=== PATIENT | female | born 1940 | race Caucasian/White ===

== ENCOUNTER 2020-04-19 01:10 | Emergency (ER) | payer OTHER, MEDICAID ==
[~2020-04-19] VITALS: Ht 152.4 cm; Wt 66.2 kg
--- NOTE | 2020-04-19 01:10 | NUR ---
PT BIBA BLS. TAKEN TO BED 9
--- NOTE | 2020-04-19 01:18 | NUR ---
Dr. Lewis examining patient.
[2020-04-19 01:25] VITALS: BP 148/52
[2020-04-19] MEDS ORDERED: MORPHINE SULFATE 2 MG/ML SYR IVP ONE ×3 (01:25→06:25)
[2020-04-19] MEDS ORDERED: NACL 0.9% 500 ML IV ONE (01:25)
[2020-04-19] MEDS ORDERED: ONDANSETRON 4 MG/2 ML VIAL IVP ONE (01:25)
--- NOTE | 2020-04-19 01:36 | NUR ---
XRAY AT BEDSIDE.
--- NOTE | 2020-04-19 01:38 | NUR ---
80 Y FEMALE BIBA DUE TO A LEFT HIP PAIN. PT STATES THAT SHE WAS GONNA GET FOOD WHEN SHE LOST BALANCE, AND FELL ON HER LEFT SIDE. SHE STATED THAT SHE "SLAMMED" ON THE FLOOR ON HER LEFT SIDE. SHE STATED THAT SHE HEARD A "POP' OR CRACK WHEN SHE FELL. HER PAIN WAS AT 10/10 THAT RADIATES TO LOWER EXTREMITIES. MEDICAL HX: HYPERTENSION, ASTHMA AND ARTHRITIS ALLERGIES: POLLEN, TREES
--- NOTE | 2020-04-19 01:38 | NUR ---
LAB AT BEDSIDE
[2020-04-19 01:50] LABS: ANION GAP 9.5 (8-16); CARBON DIOXIDE 28.2 mmol/L (21-32); CHLORIDE 106 mmol/L (98-107); CREATININE 0.9 mg/dL (0.6-1.3); GLUCOSE 116 mg/dL (74-106); POTASSIUM 3.7 mmol/L (3.5-5.1); SODIUM SERUM 140 mmol/L (136-145); UREA NITROGEN, BLOOD 22 mg/dL (7-18)
[2020-04-19 02:03] LABS: BASOPHILS # (AUTO) 0.3 K/uL (0.00-0.22); BASOPHILS % (AUTO) 4.6 % (0.0-2.0); EOSINOPHILS # (AUTO) 1.4 K/uL (0-0.4); HEMATOCRIT 37.5 % (36-48); HEMOGLOBIN 12.5 g/dL (12.0-16.0); LYMPHOCYTES # (AUTO) 1.5 K/uL (2.5-16.5); LYMPHOCYTES % (AUTO) 20.2 % (20.5-51.1); MEAN CORPUSCULAR HEMOGLOBIN 30 pg (27-31); MEAN CORPUSCULAR HGB CONC 33 g/dL (33-37); MEAN CORPUSCULAR VOLUME 90.2 fL (80-94); MONOCYTES # (AUTO) 0.6 K/uL (0.8-1.0); MONOCYTES % (AUTO) 8.4 % (1.7-9.3); NEUTROPHILS # (AUTO) 3.5 K/uL (1.8-7.7); NEUTROPHILS % (AUTO) 47.8 % (42.2-75.2); PLATELET COUNT (AUTO) 209 K/uL (140-450); RED BLOOD CELL COUNT(AUTO) 4.16 MIL/uL (4.20-5.40); RED CELL DISTRIBUTION WIDTH 14.1 % (11.6-13.7); WHITE BLOOD COUNT (AUTO) 7.4 K/uL (4.8-10.8)
--- NOTE | 2020-04-19 02:22 | NUR ---
SPOKE WITH JONN FROM [facility] AND RECIVED REPORT FOR BRIELLE THAT PATIENT XRAY READS: Acute fracture proximal left femur extending from intertrochanteric region into proximal diaphysis with mild comminution and mild displacement. BRIELLE MADE AWARE.
--- NOTE | 2020-04-19 02:35 | NUR ---
PT WAS TAKEN TO CT SCAN
[2020-04-19 02:40] LABS: PROTHROMBIN TIME 9.7 secs (10.8-13.4)
--- NOTE | 2020-04-19 02:40 | NUR ---
PT STATED HOME MEDICATIONS: LOSARTAN, PROAIR (ASTHMA MED)
--- NOTE | 2020-04-19 03:16 | NUR ---
PT RETURN FROM CT
--- NOTE | 2020-04-19 03:51 | NUR ---
# 16 FR Vegas catheter with 10 ml utilizing sterile technique. Immediate return of 100 ml straw urine noted. Bedside drainage bag placed below level of bladder. Urine sample collected and sent to lab. Pt tolerated procedure well.
--- NOTE | 2020-04-19 03:53 | NUR ---
[place] SWAB COLLECTED AND SENT TO LAB
--- NOTE | 2020-04-19 05:00 | NUR ---
Patient appears to be resting comfortably in bed. Vital Signs within normal limits. Respirations even and unlabored.
--- NOTE | 2020-04-19 07:13 | NUR ---
REPORTED TO SONNY FOR CONTINUITY OF CARE
--- NOTE | 2020-04-19 07:15 | NUR ---
Report received from YANETH Aguilar restaurant shift leader for continuity of care.
--- NOTE | 2020-04-19 07:48 | NUR ---
[facility]RA[facility]. NKDA, pollen allergy. PMH - HTN, appendectomy and cholesystectomy. Awaiting transfer to [facility], bed availability. COVID-19 swab NEGATIVE. A, A, O x 4, cooperative. In no acute distress. Positioned for comfort on gurney. HOB elevated, monitoring specialist in place, sinus rhythm, VVS Moving all extremities w/o difficulty x LLE, c/o left hip pain with movement, movement limited slowly, c/o severe pain 9/10 pain with movement, +2 DP and PT pulses, + sensation distal. Room air respirations even and unlabored. #20g IV right AC saline locked, patent, flushed. Indwelling sebastian catheter placed in the ED, yellow clear urine output, gravity draining well. Will continue to monitor and assess.
--- NOTE | 2020-04-19 08:35 | NUR ---
Patient remains NPO for probable left hip/femur surgery today at [facility]
--- NOTE | 2020-04-19 08:36 | NUR ---
Marisol ingram in [facility] - 04/19/20 at 0938 by [id number] Par
--- NOTE | 2020-04-19 09:24 | NUR ---
Spoke with patient's daughter Beverly Pettitjonnathan [phone] updated re: patient's condition
--- NOTE | 2020-04-19 10:56 | NUR ---
Called [facility] [phone], detailed report given to YANETH Kuhn for bed 2146. Questions answered, meds given and orders carried out and reviewed. Ambulance seed cone picker time ~ 1115.
--- NOTE | 2020-04-19 11:23 | NUR ---
[facility] ambulance arrived. Detailed report given to JESS Seay Vegas catheter emptied of 750cc clear yellow urine output.
[2020-04-19 11:35] VITALS: BP 111/62
--- NOTE | 2020-04-19 11:35 | NUR ---
Patient lifted to stretcher and secured. Transported to [facility]. Called Antonio Kuhn at [facility] with ETA. Called Kina taveras with ETA for room 2146.
--- NOTE | 2020-04-22 19:27 | NUR ---
LATE ENTRY- NS BOLUS DISCONTINUED AT 0300
== END 2020-04-19 11:34 | disposition designated cancer center or children's hospital (05) ==
LOC: MED 01:10
DX: S72.142A Displaced intertrochanteric fracture of left femur, initial encounter for closed fracture (principal); I10 Essential (primary) hypertension; Z20.822 Contact with and (suspected) exposure to COVID-19; Z90.49 Acquired absence of other specified parts of digestive tract; Z79.899 Other long term (current) drug therapy; W18.39XA Other fall on same level, initial encounter; Y93.89 Activity, other specified; Y92.89 Other specified places as the place of occurrence of the external cause; Y99.8 Other external cause status
CPT/HCPCS: 36415; 51702; 70450; 71045; 72125; 72192; 73502; 80048; 85025; 85610; 85730; 86886; 86900; 86901; 87426; 93005; 96361; 96374; 96375; 96376; 99285; J2270; J2405; J7030